=== PATIENT | female | born 2000 | race African-American/Black ===

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

== ENCOUNTER 2018-06-12 21:25 | Emergency (ER) | payer MEDICAID ==
[~2018-06-12] VITALS: Ht 149.9 cm; Wt 59.0 kg
--- NOTE | 2018-06-12 22:00 | NUR ---
Patient to ER CHAIR 1 to gown for evaluation. Side rails up.
[2018-06-12 22:08] VITALS: BP_SYST 125
--- NOTE | 2018-06-12 22:30 | NUR ---
Pt came to the ED for sore throat and issues trouble swallowing. Pt had a similiar episode last week. Reports she had some blood tinged phlegm which this morning which is why she wanted to come to the ED. Reports pain is 8/10. Denies fever, chills, nausea and vomiting. No other complaints/injuries noted. Will cont. to monitor.
--- NOTE | 2018-06-12 23:00 | NUR ---
pt resting in chair, not signs of acute distress. Will cont. to monitor.
--- NOTE | 2018-06-13 | NUR ---
ER at bedside examining patient.
[2018-06-13 01:04] VITALS: BP_SYST 125
--- NOTE | 2018-06-13 01:04 | NUR ---
Patient given written and verbal discharge instructions and verbalizes understanding. ER MD Dr. Miranda discussed with patient the results and treatment provided. Patient in stable condition. ID arm band removed. Rx of Amoxicillin given. Patient educated on pain management and to follow up with PMD 3-5 days. Pain Scale 0/10. Opportunity for questions provided and answered. Medication side effect fact sheet provided.
== END 2018-06-13 01:04 | disposition home or self-care (01) ==
LOC: SED 21:25
DX: J02.9 Acute pharyngitis, unspecified (principal); R03.0 Elevated blood-pressure reading, without diagnosis of hypertension
CPT/HCPCS: 36415; 86403; 87081; 99283

== ENCOUNTER 2018-08-08 18:16 | Emergency (ER) | payer MEDICAID ==
[~2018-08-08] VITALS: Ht 124.5 cm; Wt 59.0 kg
[2018-08-08 18:16] VITALS: BP_SYST 135
[2018-08-08] MEDS ORDERED: IBUPROFEN 800 MG TABLET PO ONE (19:00)
[2018-08-08 19:45] VITALS: BP_SYST 132
== END 2018-08-08 19:45 | disposition home or self-care (01) ==
LOC: SED 18:16 → UNDOADMIN 18:51 → STU 18:51 → SED 19:45
DX: J02.9 Acute pharyngitis, unspecified (principal); R03.0 Elevated blood-pressure reading, without diagnosis of hypertension
CPT/HCPCS: 99282